=== PATIENT | female | born 1970 ===

== ENCOUNTER 2018-08-22 09:28 | Emergency (ER) | payer OTHER ==
[~2018-08-22] VITALS: Ht 170.2 cm; Wt 79.4 kg
--- NOTE | 2018-08-22 10:10 | ED Upper Extremity ---
General Chief Complaint: Upper Extremity Stated Complaint: WC LT HAND INJ Source: patient Exam Limitations: no limitations History of Present Illness Date Seen by Provider: Aug 22, 2018 Time Seen by Provider: 10:00 Onset: yesterday Severity: moderate Pain/Injury Location: left hand Method of Injury: direct blow Modifying Factors: Improves With Cold Therapy, Improves With Movement, Improves With Rest The patient is a very pleasant 48-year-old female who presents for evaluation of the left hand injury. She states that she was at work yesterday and was removing something from a metal shelf. During this process she smacked the back of her hand against the shelf with great force. She initially had a small amount of swelling but continued to work. Over night and into this morning the pain and swelling has significantly intensified. Upon arrival her entire left hand is very swollen and there is some bruising. She has significant pain when moving her left hand. She denies any wrist or forearm or elbow discomfort. Keeping the hand still does help relieve the pain slightly. She is not taking any medications. Allergies and Home Medications Allergies Coded Allergies: hydrocodone (Verified Allergy, Unknown, Rash, 08/22/18) Patient Home Medication List Home Medication List Reviewed: Yes Review of Systems Constitutional: no symptoms reported EENTM: no symptoms reported Respiratory: no symptoms reported Cardiovascular: no symptoms reported Gastrointestinal: no symptoms reported Genitourinary: no symptoms reported Musculoskeletal: joint pain (left hand) Skin: no symptoms reported Psychiatric/Neurological: No Symptoms Reported All Other Systems Reviewed Negative Unless Noted: Yes Past Dbjkraa-Ehldrh-Qrzbbj Hx Past Med/Social Hx: Reviewed Nursing Past Med/Soc Hx, Reviewed and Corrections made Physical Exam Vital Signs Vital Signs - First Documented 08/22/18 09:50 Temp 97.9 Pulse 76 Resp 18 B/P (MAP) 110/64 (79) Pulse Ox 99 O2 Delivery Room Air Capillary Refill : Height, Weight, BMI Height: '" Weight: lbs. oz. kg; BMI Method: General Appearance: WD/WN HEENT: PERRL/EOMI, normal ENT inspection Neck: non-tender, full range of motion, supple Cardiovascular: regular rate, rhythm, no edema, no JVD Respiratory: chest non-tender, lungs clear, normal breath sounds Wrist: Yes normal inspection, Yes non-tender, Yes no evidence of injury, Yes normal ROM Hand: Left, bone tenderness (there is some bone tenderness over the third and fourth metacarpals of the left hand, there is moderate to severe swelling of the entire left hand and some mild ecchymosis over the distal metacarpals on the dorsal aspect), ecchymosis, limited ROM, swelling Neurologic/Tendon: normal sensation, normal motor functions, normal tendon functions, responds to pain 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, alert, normal mood/affect, oriented x 3 Skin: normal color, warm/dry Progress/Results/Core Measures Results/Orders My Orders Orders - GRISEL SIMS DO Hand 3 View Left (08/22/18 10:03) Ice: Apply To Affected Area (08/22/18 10:03) Vital Signs/I&O 08/22/18 09:50 Temp 97.9 Pulse 76 Resp 18 B/P (MAP) 110/64 (79) Pulse Ox 99 O2 Delivery Room Air Diagnostic Imaging Diagonstic Imaging: Xray Plain Films/CT/US/NM/MRI: hand Comments [facility], [place] NAME: DIANE MERRILL [facility] REC#: [id number] PT STATUS: REG ER : 1970 PHYSICIAN: GRISEL SIMS DO ADMIT DATE: 08/22/18/ER FS Draft Date of Exam:08/22/18 HAND 3 VIEW LEFT INDICATION: Injury to left hand at work. Time of exam: 9:49 AM 3 views of the left hand were obtained. Distal radius and ulna appear intact. The carpus appears intact. Metacarpals and phalanges are unremarkable. No fractures are seen. IMPRESSION: No acute bony abnormality is identified. Dictated on workstation # [id number] Dict: 08/22/18 1017 Trans: 08/22/18 1023 MALLORY [id number] Interpreted by: TRINO HASSAN MD Electronically signed by: Departure Impression Primary Impression: Contusion of hand Disposition: 01 HOME, SELF-CARE Condition: Stable Departure-Patient Inst. Referrals: NO,LOCAL PHYSICIAN (PCP/Family) Primary Care Physician Patient Instructions: Contusion (DC) Scripts Tramadol HCl (Tramadol HCl) 50 Mg Tablet 50 MG PO Q6H PRN for PAIN for 3 Days, #12 TAB 0 Refills Prov: GRISEL SIMS DO 08/22/18 GRISEL SIMS DO Aug 22, 2018 10:10
[2018-08-22] MEDS ORDERED: RANI150T11 (10:21)
[2018-08-22] MEDS ORDERED: ESTR1TAB24 (10:21)
[2018-08-22] MEDS ORDERED: PARO20TA5 (10:21)
[2018-08-22] MEDS ORDERED: SUCR1TAB (10:21)
[2018-08-22] MEDS ORDERED: PROP120C3 (10:21)
[2018-08-22] MEDS ORDERED: MONT10TA24 (10:21)
[2018-08-22] MEDS ORDERED: PANT40TA3 (10:21)
--- NOTE | 2018-08-22 10:23 | Diagnostic Imaging Report ---
INDICATION: Injury to left hand at work. Time of exam: 9:49 AM 3 views of the left hand were obtained. Distal radius and ulna appear intact. The carpus appears intact. Metacarpals and phalanges are unremarkable. No fractures are seen. IMPRESSION: No acute bony abnormality is identified. Dictated by: Dictated on workstation # [id number]
[2018-08-22] MEDS ORDERED: TRAM50TA2 PO (10:31)
[2018-08-22 10:59] VITALS: BP 110/64
== END 2018-08-22 10:59 | disposition home or self-care (01) ==
LOC: ER FS 09:31
DX: S60.221A Contusion of right hand, initial encounter (principal); Z88.5 Allergy status to narcotic agent; W22.09XA Striking against other stationary object, initial encounter; Y92.59 Other trade areas as the place of occurrence of the external cause; Y99.0 Civilian activity done for income or pay
CPT/HCPCS: 73130

== ENCOUNTER 2022-08-30 08:42 | Outpatient (CLI) | payer OTHER ==
[~2022-08-30] VITALS: Ht 172.7 cm; Wt 91.6 kg
[~2022-08-30 08:42] MED LIST: ESTR1TAB24; MONT-40; PANT40TA52; PARO20TA5; PROP120C3; RANI150T11; SUCR1TAB; TRM50T PO
[2022-08-31] MEDS ORDERED: ESOM20CA PO (12:11)
[2022-08-31] MEDS ORDERED: CELE200C PO (12:11)
[2022-08-31] MEDS ORDERED: LORA10CA PO (12:11)
[2022-08-31] MEDS ORDERED: DULO60CA59 PO (12:11)
[2022-08-31] MEDS ORDERED: GABA-486 PO (12:11)
== END 2022-08-31 12:30 | disposition home or self-care (01) ==
LOC: PREOP 08:42
PROVIDERS: ATTEND Surgery
DX: Z01.818 Encounter for other preprocedural examination (principal)

== ENCOUNTER 2022-09-10 07:59 | Day surgery (SDC) | payer OTHER ==
[~2022-09-10] VITALS: Ht 172.7 cm; Wt 91.6 kg
[~2022-09-10 07:59] MED LIST changes: +CELE200C PO; +DULO60CA59 PO; +ESOM20CA PO; +GABA-486 PO; +LORA10CA PO
--- NOTE | 2022-09-10 08:20 | Progress Note-Pre Operative ---
Pre-Operative Progress Note Date of Available H&P: Aug 28, 2022 Date H&P Reviewed: Sep 10, 2022 Time H&P Reviewed: 08:18 History & Physical: H&P Reviewed, Patient Examed, No changes noted Pre-Operative Diagnosis: GERD, Hx of Polyps KAYE CAMPBELL DO Sep 10, 2022 08:20
[2022-09-10] MEDS ORDERED: LACTATED RINGERS 1,000 ML IV STA (08:27)
[2022-09-10] MEDS ORDERED: HURRICAINE EXT TUBE (BENZOCAINE) XX PRN (08:30)
[2022-09-10 08:59] VITALS: BP 127/54
[2022-09-10] MEDS ORDERED: PROPOFOL INJECTION 50 ML IV ONE (09:29)
[2022-09-10] MEDS ORDERED: MIDAZOLAM 2 MG/2 ML (VERSED) VIAL ONE (09:30)
[2022-09-10 10:20] VITALS: BP 127/56
--- NOTE | 2022-09-10 10:20 | Anesthesia-General Post-Op ---
MAC Patient Condition Mental Status/LOC: Same as Preop Cardiovascular: Satisfactory Nausea/Vomiting: Absent Respiratory: Satisfactory Pain: Controlled Complications: Absent Post Op Complications Complications None Follow Up Care/Instructions Patient Instructions None needed. Anesthesiology Discharge Order Discharge Order Patient is doing well, no complaints, stable vital signs, no apparent adverse anesthesia problems. No complications reported per nursing. LORENA BROWN CRNA Sep 10, 2022 10:20
--- NOTE | 2022-09-10 10:23 | Progress Note-Post Operative ---
Post-Operative Progess Note Surgeon (s)/Mail Caller (s) Surgeon KAYE CAMPBELL DO Mail Caller: GENE Maynard Pre-Operative Diagnosis GERD, Hx of Polyps Post-Operative Diagnosis Gastritis Esophagitis Small sliding Hiatal hernia Polyps Colitis of cecum int hemorrhoids Procedure & Operative Findings Date of Procedure 09/10/22 Procedure Performed/Findings EGD with biopsy Colonoscopy with snare polypectomy Colonoscopy with cold bx PROCEDURE NOTE: After informed consent was obtained, the patient was brought to the endoscopy suite, placed in bed in left lateral decubitus position. She was administered IV sedation by the FOUNDRY MELT SUPERVISOR who then monitored vitals the entire time, heart rate, blood pressure and pulse ox and the scope was inserted down the mouth through the esophagus into the stomach. On the way down, noted some mild esophagitis, took a picture, pushed into the stomach, pushed past the antrum into the duodenum. Duodenum looked good. Pulled back and did a biopsy of antrum, then retroflexed the scope, saw very small sliding hiatal hernia, took a picture of this and then pulled the scope into the GE junction and then did a biopsy of the GE junction. Pushed the scope back into the stomach, suctioned all the air out of the stomach. At this point pulled the scope up the esophagus and out the mouth. Switched camera, switched gloves, went down below and started the colonoscopy. Pushed all the way to about 150 cm and pushed into the cecum. However, on the way in found a polyp in the Sigmoid and then Descending colon that I elected to remove with hot snare. I also found poor prep and I took a picture. Once in the cecum I took a picture of appendiceal orifice and noted the ileocecal valve. I also found what looked like colitis and elected to do three random biopsies in the Cecum. Then slowly withdrew the scope insufflating to look circumferentially at the sherman starting in the cecum and up the ascending colon. I found another polyp here and removed it with the snare. Continued to the hepatic flexure, then down the transverse colon where I found a flat polyp that I removed with the biopsy forceps. Next, to the splenic flexure, into the descending colon down in the sigmoid and then into the rectum. I found another flat polyp here that I also removed with cold biopsy. Finally, in the rectal vault I retroflexed the scope and took a picture of the internal hemorrhoids. The patient tolerated the procedure and she recovered in the endoscopy suite. Recommended for repeat colonoscopy in 1-3 years Anesthesia Type IV sedation by FOUNDRY MELT SUPERVISOR Estimated Blood Loss Estimated blood loss (mL): scant Specimens/Packing Specimens Removed antral bx GE jxn bx sigmoid polyp descending polyp cecal biopsies asc colon poly transverse polyp rectal polyp KAYE CAMPBELL DO Sep 10, 2022 10:23
[2022-09-10 10:25] VITALS: BP 102/73
--- NOTE | 2022-09-10 10:26 | Endoscopy Discharge Instruct ---
Endo Procedure/Findings Findings 1.: Gastritis 2.: Hiatal Hernia 3.: Polyp 4.: Colitis, Internal Hemorrhoids Discharge Instructions - Activity: You might feel a little sleepy until tomorrow. This is due to the medicine you received to relax you. Until tomorrow, you should: NOT drive a car, operate machinery or power tools. NOT drink any alcoholic beverages. NOT make any important decisions or sign importortant papers. Do not return to work until tomorrow, unless otherwise instructed. Resume previous activities tomorrow. Diet: Start by taking liquids. If you tolerate liquids, advance to solid food. 1.: EGD in 3 years 2.: Colonoscopy in 1 year, Colonscopy in 3 years Notify Physician - If you experience excessive bleeding, unusual abdominal pain, fever, or chest p ain, contact your doctor immediately. Follow-Up: Other Follow up in my office in one week KAYE CAMPBELL DO Sep 10, 2022 10:26
[2022-09-10 11:02] VITALS: BP 102/73
== END 2022-09-10 11:02 | disposition home or self-care (01) ==
LOC: ENDO 07:59
PROVIDERS: ATTEND Surgery
DX: Z12.11 Encounter for screening for malignant neoplasm of colon (principal); D12.4 Benign neoplasm of descending colon; K63.5 Polyp of colon; K62.1 Rectal polyp; K52.9 Noninfective gastroenteritis and colitis, unspecified; K29.50 Unspecified chronic gastritis without bleeding; K64.8 Other hemorrhoids; K21.00 Gastro-esophageal reflux disease with esophagitis, without bleeding; K44.9 Diaphragmatic hernia without obstruction or gangrene; K31.89 Other diseases of stomach and duodenum; K63.89 Other specified diseases of intestine; F17.210 Nicotine dependence, cigarettes, uncomplicated; Z28.310 Unvaccinated for COVID-19